=== PATIENT | female | born 1970 | race Hispanic/Latino ===

== ENCOUNTER 2018-02-01 10:10 | Emergency (ER) | payer SELFPAY ==
[2018-02-01] MEDS ORDERED: ZITHROMAX PO ONE (12:55)
[2018-02-01] MEDS ORDERED: MOTRIN PO ONE (12:55)
[2018-02-01] MEDS ORDERED: LIDOCAINE VISCOUS 2% PO ONE (12:55)
[2018-02-01] MEDS ORDERED: GUAIFENESIN DM SYRUP PO ONE (12:55)
[2018-02-01] MEDS ORDERED: PROVENTIL IH ONE (12:56)
[2018-02-01] MEDS ORDERED: CATAPRES PO ONE (12:56)
--- NOTE | 2018-02-01 13:00 | Emergency Department Report ---
Chief Complaint: Upper Respiratory Infection Stated Complaint: LIZY Time Seen by Provider: 02/01/18 12:37 - HPI History of Present Illness: The patient is a 47-year-old female whom presents for evaluation of cough. The patient has history of asthma and COPD. The patient reports a productive cough for the past 24 hours, associated with 1 day of mild stinging in quality soreness of the throat, exacerbated with swallowing, and left ear pain, fullness in quality, mild in severity. The patient denies fever, chest pain, dyspnea, neck stiffness, dysphagia, stridor, drooling, difficulty tolerating secretions, dysphonia, hoarseness of voice, abdominal pain. - Exam Vital Signs: Vital Signs 02/01/18 11:08 Temperature 98.2 F Pulse Rate 95 H Respiratory 16 Rate Blood Pressure 178/105 O2 Sat by Pulse 99 Oximetry MSE screening note: Focused history and physical exam performed. Due to findings the following was ordered: ED Disposition for MSE Condition: Stable Referrals: PRIMARY CARE, [Primary Care Provider] - 3-5 Days
--- NOTE | 2018-02-01 13:41 | XRay Report ---
Chest 2 views: History: Dyspnea. Findings: Normal cardiomediastinal silhouette the trachea is midline. No consolidation, pneumothorax or pleural effusion. Impression: No acute cardiopulmonary findings.
--- NOTE | 2018-02-01 14:10 | Emergency Department Report ---
- General Chief Complaint: Upper Respiratory Infection Stated Complaint: LIZY Time Seen by Provider: 02/01/18 12:37 Source: patient Mode of arrival: Ambulatory Limitations: No Limitations - History of Present Illness Initial Comments: This is a 47-year-old female nontoxic, well nourished in appearance, no acute signs of distress presents to the ED with c/o of productive cough, fever, chills , body aches, rhinorrhea, nasal congestion, and left earache x1 day. Patient describes productive cough as yellow mucus production. Patient denies any sick contact. Patient denies any recent travels, long car, recent hospital stays. Patient denies any calf pain or calf tenderness. Patient denies any chest pain , short of breath, fever, chills, nausea, vomiting, hemoptysis, numbness, tingling, headache or stiff neck. Patient denies any allergies or significant PMH. MD Complaint: cough, rhinorrhea, nasal congestion, other (body aches) -: days(s) (1) Severity: mild Severity scale (0 -10): 8 Quality: aching Consistency: constant Improves With: nothing Worsens With: nothing Associated Symptoms: rhinorrhea, nasal congestion, cough. denies: fever, chills , myalgias, diaphoresis, headache, sore throat, stiff neck, chest pain, shortness of breath, abdominal pain, nausea, vomiting, diarrhea, dysuria, rash, confusion, right sweats, weight loss, epistaxis, hoarseness, ear pain Treatments Prior to Arrival: none - Related Data Previous Rx's Medication Instructions Recorded Last Taken Type ALBUTEROL Inhaler [Proair] 2 puff IH QID PRN #1 inhalation 02/01/18 Unknown Rx Azithromycin [Zithromax Z-MANUEL] 250 mg PO DAILY #6 tablet 02/01/18 Unknown Rx Benzonatate [Tessalon Perle] 100 mg PO Q8H PRN #20 capsule 02/01/18 Unknown Rx Ibuprofen [Motrin] 600 mg PO Q8H PRN #30 tablet 02/01/18 Unknown Rx Oseltamivir [Tamiflu] 75 mg PO BID #14 cap 02/01/18 Unknown Rx amLODIPine [Norvasc] 5 mg PO DAILY #30 tab 02/01/18 Unknown Rx Allergies Allergy/AdvReac Type Severity Reaction Status Date / Time No Known Allergies Allergy Unverified 02/01/18 11:08 ED Review of Systems ROS: Stated complaint: LIZY Other details as noted in HPI Constitutional: denies: chills, fever Eyes: denies: eye pain, eye discharge, vision change ENT: denies: ear pain, throat pain Respiratory: cough. denies: shortness of breath, wheezing Cardiovascular: denies: chest pain, palpitations Endocrine: no symptoms reported Gastrointestinal: denies: abdominal pain, nausea, diarrhea Genitourinary: denies: urgency, dysuria, discharge Musculoskeletal: denies: back pain, joint swelling, arthralgia Skin: denies: rash, lesions Neurological: denies: headache, weakness, paresthesias Psychiatric: denies: anxiety, depression Hematological/Lymphatic: denies: easy bleeding, easy bruising ED Past Medical Hx - Past Medical History Hx Asthma: Yes Additional medical history: Bronchitis - Surgical History Additional Surgical History: Tonsilectomy - Social History Smoking Status: Never Smoker Substance Use Type: Alcohol - Medications Home Medications: Home Medications Medication Instructions Recorded Confirmed Last Taken Type ALBUTEROL Inhaler [Proair] 2 puff IH QID PRN #1 inhalation 02/01/18 Unknown Rx Azithromycin [Zithromax Z-MANUEL] 250 mg PO DAILY #6 tablet 02/01/18 Unknown Rx Benzonatate [Tessalon Perle] 100 mg PO Q8H PRN #20 capsule 02/01/18 Unknown Rx Ibuprofen [Motrin] 600 mg PO Q8H PRN #30 tablet 02/01/18 Unknown Rx Oseltamivir [Tamiflu] 75 mg PO BID #14 cap 02/01/18 Unknown Rx amLODIPine [Norvasc] 5 mg PO DAILY #30 tab 02/01/18 Unknown Rx ED Physical Exam - General Limitations: No Limitations General appearance: alert, in no apparent distress - Head Head exam: Present: atraumatic, normocephalic - Eye Eye exam: Present: normal appearance, PERRL, EOMI Pupils: Present: normal accommodation - ENT ENT exam: Present: normal exam, normal orophraynx, mucous membranes moist, TM's normal bilaterally, normal external ear exam - Neck Neck exam: Present: normal inspection, full ROM. Absent: tenderness, meningismus, lymphadenopathy, thyromegaly - Respiratory Respiratory exam: Present: normal lung sounds bilaterally. Absent: respiratory distress, wheezes, rales, rhonchi, stridor, chest wall tenderness, accessory muscle use, decreased breath sounds, prolonged expiratory - Cardiovascular Cardiovascular Exam: Present: regular rate, normal rhythm, normal heart sounds. Absent: irregular rhythm, systolic murmur, diastolic murmur, rubs, gallop - GI/Abdominal GI/Abdominal exam: Present: soft, normal bowel sounds. Absent: distended, tenderness, guarding, rebound, rigid, diminished bowel sounds - Rectal Rectal exam: Present: deferred - Extremities Exam Extremities exam: Present: normal inspection, full ROM, normal capillary refill. Absent: tenderness, pedal edema, joint swelling, calf tenderness - Back Exam Back exam: Present: normal inspection, full ROM. Absent: tenderness, CVA tenderness (R), CVA tenderness (L), muscle spasm, paraspinal tenderness, vertebral tenderness, rash noted - Neurological Exam Neurological exam: Present: alert, oriented X3, CN II-XII intact, normal gait, reflexes normal - Psychiatric Psychiatric exam: Present: normal affect, normal mood - Skin Skin exam: Present: warm, dry, intact, normal color. Absent: rash ED Course Vital Signs 02/01/18 02/01/18 11:08 14:33 Temperature 98.2 F Pulse Rate 95 H 98 H Respiratory 16 20 Rate Blood Pressure 178/105 Blood Pressure 112/73 [Left] O2 Sat by Pulse 99 100 Oximetry - Reevaluation(s) Reevaluation #1: 02/01/18 14:16 Patient is speaking in full sentences with no signs of distress noted. - Consultations Consultation #1: 02/01/18 14:16 Patient has been consulted with Dr. Garza about patient history, physical exam, and labs and examined and screened patient and agrees to ED plan of care and discharge plan of care. ED Medical Decision Making - Medical Decision Making This is a 47-year-old female that presents with upper respiratory infection, HTN , and influenza. Patient is stable and was examined by me. Chest x-ray has been obtained and dictated by radiologist with normal exam. Patient is notified of x-ray results with no questions noted. Due to patient having symptoms of upper respiratory infection and symptoms of influenza and worsening I will treat patient empirically Tamiflu with zpak. Patient is within the >72 hour window for tamiflu. Patient was instructed to increase hydration, rest and take Motrin for fever episodes. Patient received Catapres in the ED. Vitals stable. Patient is nonfebrile and normal heart rate. Patient was orally hydrated and patient tolerated well known nausea or vomiting. Patient was instructed Follow-up with a primary care doctor in 3-5 days or if symptoms worsen and continue return to emergency room as soon as possible. At time time of discharge, the patient does not seem toxic or ill in appearance. No acute signs of distress noted. Patient agrees to discharge treatment plan of care. No further questions noted by the patient. Critical care attestation.: If time is entered above; I have spent that time in minutes in the direct care of this critically ill patient, excluding procedure time. ED Disposition Clinical Impression: Influenza HTN (hypertension) Qualifiers: Hypertension type: unspecified Qualified Code(s): I10 - Essential (primary) hypertension Upper respiratory infection Qualifiers: URI type: unspecified URI Qualified Code(s): J06.9 - Acute upper respiratory infection, unspecified Disposition: DC- TO HOME OR SELFCARE Is pt being admited?: No Does the pt Need Aspirin: No Condition: Stable Instructions: Azithromycin (By mouth), Oseltamivir (By mouth), Influenza (ED), Upper Respiratory Infection (ED), Hypertension (ED) Additional Instructions: Follow-up with a primary care doctor in 3-5 days or if symptoms worsen and continue return to emergency room as soon as possible. Increase rest, hydration and take Motrin as prescribed during fever episode. Prescriptions: ALBUTEROL Inhaler [Proair] 2 puff IH QID PRN #1 inhalation PRN Reason: Shortness Of Breath amLODIPine [Norvasc] 5 mg PO DAILY #30 tab Azithromycin [Zithromax Z-MANUEL] 250 mg PO DAILY #6 tablet Benzonatate [Tessalon Perle] 100 mg PO Q8H PRN #20 capsule PRN Reason: Cough Ibuprofen [Motrin] 600 mg PO Q8H PRN #30 tablet PRN Reason: Pain Oseltamivir [Tamiflu] 75 mg PO BID #14 cap Referrals: PRIMARY CARE, [Primary Care Provider] - 3-5 Days CL OAKLEY MD [Staff Physician] - 3-5 Days [facility] [Outside] - 3-5 Days [facility] [Outside] - 3-5 Days Forms: Work/School Release Form(ED)
[2018-02-01 14:34] VITALS: BP 112/73
== END 2018-02-01 14:43 | disposition home or self-care (01) ==
LOC: ED 10:10
DX: J11.1 Influenza due to unidentified influenza virus with other respiratory manifestations (principal); J06.9 Acute upper respiratory infection, unspecified; I10 Essential (primary) hypertension
CPT/HCPCS: 71046; 99283

== ENCOUNTER 2020-11-19 13:43 | Outpatient (CLI) | payer OTHER ==
[2020-11-19 14:19] LABS: Hematocrit 39.3 % (30.3-42.9); Hemoglobin 13.3 gm/dl (10.1-14.3); Mean Corpuscular HGB Conc 34 % (30-34); Mean Corpuscular Volume 102 fl (79-97); Platelet Count 263 K/mm3 (140-440); Red Blood Count 3.87 M/mm3 (3.65-5.03); Red Cell Distribution Width 13.5 % (13.2-15.2)
[2020-11-19 14:40] LABS: Albumin 4.4 g/dL (3.9-5); Calcium 9.7 mg/dL (8.4-10.2)
[2020-11-19 14:51] LABS: ABG Base Excess 0.5 mmol/L (-2.0-3.0); ABG HCO3 24.5 mmol/L (20.0-26.0); ABG Methemoglobin 0.5 % (0.0-1.5); ABG Oxygen Saturation 96.6 % (95.0-99.0); ABG PCO2 37.4 mm Hg; ABG PH 7.434 pH Units (7.350-7.450); ABG PO2 77.2 mm Hg (80.0-90.0)
--- NOTE | 2020-11-19 15:26 | XRay Report ---
PARANASAL SINUSES 4 VIEW(S) INDICATION / CLINICAL INFORMATION: SINUSITIS. COMPARISON: None available. FINDINGS: SINUSES: No air-fluid level. Mild mucosal thickening in the ethmoid sinuses. ADDITIONAL FINDINGS: None. IMPRESSION: 1. No evidence of acute sinusitis. Signer Name: Ede Mai MD Signed: 11/19/2020 3:21 PM Workstation Name: [id number]
== END 2020-11-19 13:44 | disposition home or self-care (01) ==
LOC: XRAY 13:43
PROVIDERS: ATTEND Internal Medicine
DX: J45.909 Unspecified asthma, uncomplicated (principal); R05 Cough; J30.9 Allergic rhinitis, unspecified; I10 Essential (primary) hypertension
CPT/HCPCS: 36415; 70220; 80053; 82785; 82803; 84436; 84443; 85027